=== PATIENT | male | born 1975 | race American Indian/Alaskan Native ===

== ENCOUNTER 2017-11-13 08:49 | Day surgery (SDC) | payer OTHER ==
[2017-11-13 09:49] LABS: Basophils # (Auto) 0.1 K/mm3 (0.0-0.1); Basophils % (Auto) 1.1 % (0.0-1.8); Eosinophils # (Auto) 0.1 K/mm3 (0.0-0.4); Eosinophils % (Auto) 1.3 % (0.0-4.3); Hematocrit 44.6 % (35.5-45.6); Hemoglobin 14.5 gm/dl (11.8-15.2); Lymphocytes # (Auto) 2.4 K/mm3 (1.2-5.4); Lymphocytes % (Auto) 29.8 % (13.4-35.0); Mean Corpuscular HGB Conc 32 % (32-34); Mean Corpuscular Hemoglobin 28 pg (28-32); Mean Corpuscular Volume 86 fl (84-94); Monocytes # (Auto) 0.5 K/mm3 (0.0-0.8); Monocytes % (Auto) 6.6 % (0.0-7.3); Platelet Count 345 K/mm3 (140-440); Red Blood Count 5.18 M/mm3 (3.65-5.03); Red Cell Distribution Width 15.6 % (13.2-15.2)
[2017-11-13 09:58] LABS: BUN/Creatinine Ratio 11; Blood Urea Nitrogen 17 mg/dL (9-20); Calcium 8.5 mg/dL (8.4-10.2); Hemolysis Index 236
[2017-11-13 09:59] LABS: INR 0.89 (0.87-1.13)
[2017-11-13] MEDS ORDERED: NACL 0.9% 500 ML 500 ML IV SCH (10:00)
[2017-11-13] MEDS ORDERED: BENADRYL ONE (11:09)
[2017-11-13] MEDS ORDERED: BENADRYL IV NR (11:30)
[2017-11-13] MEDS ORDERED: HEPARIN/NS 5000 UNIT/500ML(CATH LAB) 500 ML IR ONE (11:56)
[2017-11-13] MEDS: SUBLIMAZE ONE ×2 (12:00→12:51)
[2017-11-13] MEDS: VERSED ONE ×2 (12:01→12:51)
[2017-11-13] MEDS ORDERED: HEPARIN/NS 5000 UNIT/500ML(CATH LAB) 1,000 ML IR ONE (12:01)
[2017-11-13] MEDS: XYLOCAINE 2% INFILTRATI ONE ×2 (12:02→12:54)
[2017-11-13] MEDS ORDERED: ADRENALIN ONE (12:20)
[2017-11-13] MEDS ORDERED: ATROPINE 0.1% (CARDIAC) ONE (12:20)
[2017-11-13] MEDS ORDERED: XYLOCAINE 2% INFILTRATI ONE (12:21)
[2017-11-13] MEDS ORDERED: ULTRAM PO PRN (14:06)
--- NOTE | 2017-11-13 14:11 | Discharge Summary ---
Short Stay Discharge Plan Activity: advance as tolerated Weight Bearing Status: Partial Weight Bearing Diet: low fat, low cholesterol, low salt Wound: keep clean and dry Special Instructions: no heavy lifting (3 days) Follow up with: IMAN GONZALEZ MD [Primary Care Provider] - 7 Days TALHA SCHWAB MD [Staff Physician] - 7 Days
--- NOTE | 2017-11-13 14:49 | Cardiac Catherization Report ---
REASON FOR PROCEDURE: The patient is a 42-year-old man with a history of severe mitral valve prolapse, mitral regurgitation and intermittent shortness of breath. The right and left heart catheterization was recommended. PROCEDURE: 1. Right heart catheterization. 2. Left heart catheterization. 3. Selective left and right coronary angiography. 4. Left ventricle angiography. The patient was prepped and draped in a sterile fashion after informed consent. The right femoral artery and vein were both entered using Seldinger technique. A 6-Divehi sheath was placed in the artery and an 8 Divehi sheath in the vein. Caldwell-Vitaliy catheter was advanced to the pulmonary artery position. A pigtail catheter was advanced to the left ventricle. Cardiac output was measured using thermodilution method. Following that, simultaneous right and left heart filling pressures were measured, and the Caldwell-Vitaliy withdrawn. Left ventricular angiography was performed using the pigtail catheter. Following this, the pigtail catheter was withdrawn across the aortic valve and transaortic valve pressure was recorded. We then performed selective left and right coronary angiography. The catheters were then removed, sheath removed, and hemostasis achieved using an Angio-Seal device in the arterial puncture and manual compression on the venous puncture. The procedure was well tolerated by the patient, he was returned to the postprocedure unit in stable condition. FINDINGS: HEMODYNAMICS: Mean right atrial pressure was 20. Right ventricular pressure was 60/25. Pulmonary artery pressure was 65/40. The mean pulmonary artery wedge pressure was 25. Left ventricular end diastolic pressure was 28-30. Cardiac output was 7.6 liters per minute. Ascending aortic pressure was 153/93. There was no significant pressure gradient on pullback across the aortic valve. CORONARY ANGIOGRAPHY: The left main coronary artery was angiographically normal. The left anterior descending artery was a large vessel, which extended around the apex of the left ventricle, perfusing a large portion of the inferior wall. This vessel contained mild luminal irregularities in its mid segment. Two medium-sized mid diagonal branches contained mild to moderate ostial narrowing. The circumflex artery was a relatively small caliber system. This vessel was completely occluded in its mid segment. This was a long segment of chronic total occlusion. There was faint collateralization of a medium-sized terminal obtuse marginal by left to left and right to left collaterals. The right coronary artery was dominant. This vessel contained mild luminal irregularities in its proximal and mid segments. There was a 30-40% stenosis of the mid right coronary artery. Left ventricular chamber size and systolic function were within normal limits. The ejection fraction was 55%. Due to ventricular ectopy during contrast injection, we were not able to optimally assess the degree of mitral regurgitation. CONCLUSION: 1. Coronary artery disease, with chronic total occlusion of the circumflex artery. 2. Well preserved left ventricular systolic function, ejection fraction of 55-60%. 3. Severity of the mitral regurgitation could not be optimally assessed angiographically due to ventricular ectopy during contrast injection. RECOMMENDATION: 1. Echocardiography for further assessment of mitral valve pathology and function. 2. Medical therapy for chronic total occlusion of the circumflex and aggressive risk factor modification. 3. Further therapies for mitral valve disease will depend on clinical course and the findings on echocardiography with Doppler. [facility]# [id number] MARYCHUY/NTS
[2017-11-13] MEDS ORDERED: NACL 0.9% 1000 ML 1,000 ML IV SCH (15:00)
[2017-11-13 16:34] VITALS: BP 134/86
== END 2017-11-13 17:30 | disposition home or self-care (01) ==
LOC: CATHLABREC 08:49
PROVIDERS: ATTEND Internal Medicine Cardiovascular Disease
DX: I25.10 Atherosclerotic heart disease of native coronary artery without angina pectoris (principal); I34.9 Nonrheumatic mitral valve disorder, unspecified; I10 Essential (primary) hypertension; E05.90 Thyrotoxicosis, unspecified without thyrotoxic crisis or storm; Z79.82 Long term (current) use of aspirin; Z79.899 Other long term (current) drug therapy; Z79.01 Long term (current) use of anticoagulants
CPT/HCPCS: 36415; 80048; 85025; 85610; 85730; 93005; 93010; 93460; 96374; 96375; 99156; 99157; C1760; C1894; J1200; J1644; J1720; J2250; J3010; J7040; J0171; J0461; Q9967